=== PATIENT | male | born 1950 | race Caucasian/White ===

== ENCOUNTER 2016-09-20 09:34 | Outpatient (CLI) | payer OTHER ==
--- NOTE | 2016-09-20 11:05 | DIAGNOSTIC IMAGING REPORT ---
PROCEDURE: MR LUMBAR SPINE W/O CONTRAST INDICATION: LBP TECHNIQUE: Noncontrast T1, T2, and STIR sagittal images. T1 and T2 axial images. COMPARISON: None. FINDINGS: There is mild compression of the L1 vertebral body. This represents less than 20% of the vertebral body height. L1-2: Normal. L2-3: Normal. L3-4: Normal. L4-5: Normal. L5-S1: There is a small herniated nucleus pulposus on the left. There has been some superior migration of the fragment. There is also displacement of the nerve root and the thecal sac. IMPRESSION: 1. Small herniated nucleus pulposus L5-S1 on the left.
== END 2016-09-20 23:00 | disposition home or self-care (01) ==
LOC: MRI SRH 09:34
DX: M51.27 Other intervertebral disc displacement, lumbosacral region (principal)